=== PATIENT | male | born 1950 | race African-American/Black ===

== ENCOUNTER 2023-05-17 01:50 | Observation (INO) | payer OTHER ==
[2023-05-17 01:59] VITALS: BMI 32.3
[2023-05-17 02:48] LABS: BASO % 0.5 % (0-2.0); HEMATOCRIT 43.3 % (35.4-49); HEMOGLOBIN 14.8 GM/dL (11.7-16.9); LYMPH % 43.5 % (8-40); MCH 36.4 pg (25.7-33.7); MCHC 34.2 g/dl (32.0-35.9); MEAN CELL VOLUME 106.4 fl (80-96); MEAN PLT VOLUME 8.7 fl (7.5-11.1); MONO % 8.8 % (3.8-10.2); NEUT % 46.2 % (42.8-82.8); PLATELET COUNT 232 10^3/uL (134-434); RBC 4.07 M/mm3 (4.00-5.60); RDW 15.2 % (11.9-15.9); WHITE BLOOD COUNT 8.1 K/mm3 (4.0-10.0)
[2023-05-17 02:58] LABS: INR 0.97 (0.83-1.09); POTASSIUM 3.5 mmol/L (3.5-5.1); PROTHROMBIN TIME (PATIENT) 11.2 SEC (9.7-13.0)
[2023-05-17 03:00] LABS: ACTIVATED PTT 31.1 SECONDS (25.2-36.5); CALCIUM 8.7 mg/dL (8.5-10.1)
[2023-05-17 03:01] LABS: MAGNESIUM 1.9 mg/dL (1.8-2.4)
[2023-05-17 03:04] LABS: CREATININE 0.8 mg/dL (0.55-1.3)
[2023-05-17 03:05] LABS: BILIRUBIN,TOTAL 0.4 mg/dL (0.2-1); TOT PROT 7.7 g/dl (6.4-8.2)
[2023-05-17 05:55] LABS: ANISOCYTOSIS 1+; MACROCYTOSIS 1+
[2023-05-17 08:08] LABS: BASO % 0.8 % (0-2.0); EOS % 0.8 % (0-4.5); HEMATOCRIT 39.8 % (35.4-49); HEMOGLOBIN 13.6 GM/dL (11.7-16.9); MCH 36.6 pg (25.7-33.7); MCHC 34.3 g/dl (32.0-35.9); MEAN CELL VOLUME 106.7 fl (80-96); MEAN PLT VOLUME 9.1 fl (7.5-11.1); MONO % 10.5 % (3.8-10.2); NEUT % 52.9 % (42.8-82.8); PLATELET COUNT 196 10^3/uL (134-434); RBC 3.73 M/mm3 (4.00-5.60); WHITE BLOOD COUNT 6.6 K/mm3 (4.0-10.0)
[2023-05-17 08:31] LABS: POTASSIUM 3.7 mmol/L (3.5-5.1)
[2023-05-17 08:35] LABS: ALBUMIN 2.8 g/dl (3.4-5.0); BLOOD UREA NITROGEN 9.3 mg/dL (7-18); CALCIUM 8.2 mg/dL (8.5-10.1); CHOLESTEROL 197 mg/dL (50-200); MAGNESIUM 1.8 mg/dL (1.8-2.4)
[2023-05-17 08:37] LABS: LDL CHOLESTEROL (ONLY SJRH) 101 mg/dL (5-100)
[2023-05-17 08:38] LABS: HDL CHOLESTEROL 86 mg/dL (40-60)
[2023-05-17 08:39] LABS: CREATININE 0.7 mg/dL (0.55-1.3)
[2023-05-17 08:40] LABS: BILIRUBIN,TOTAL 0.3 mg/dL (0.2-1); TOT PROT 6.7 g/dl (6.4-8.2)
[2023-05-17] MEDS ORDERED: HYDROCHLOROTHIAZIDE 25 MG TABLET (FP) ONE (09:18)
[2023-05-17] MEDS ORDERED: ENOXAPARIN NA (PORCINE) 40 MG/0.4 ML DISP.SYRIN SQ ONE (09:19)
[2023-05-17] MEDS ORDERED: LISINOPRIL 10 MG TABLET ONE ×2 (09:19→22:29)
[2023-05-17] MEDS: HYDROCHLOROTHIAZIDE 12.5 MG CAPSULE (FP) PO SCH (09:26)
[2023-05-17] MEDS: ENOXAPARIN NA (PORCINE) 40 MG/0.4 ML DISP.SYRIN SQ SCH (09:26)
[2023-05-17] MEDS ORDERED: LISINOPRIL 10 MG TABLET PO SCH (22:00)
[2023-05-18 06:30] VITALS: TEMP 97.8
[2023-05-18] MEDS: ENOXAPARIN NA (PORCINE) 40 MG/0.4 ML DISP.SYRIN SQ SCH (09:51)
[2023-05-18] MEDS: HYDROCHLOROTHIAZIDE 12.5 MG CAPSULE (FP) PO SCH (09:51)
[2023-05-18 10:21] VITALS: BP 161/84; PULSE 77; RESP 23
== END 2023-05-18 10:30 | disposition home or self-care (01) ==
LOC: JER 01:50 → JERBED 04:57
PROVIDERS: ADMIT Internal Medicine; ATTEND Internal Medicine
PROC: 3E023GC Introduction of Other Therapeutic Substance into Muscle, Percutaneous Approach (ICD-10-PCS; principal; 2023-05-17)
DX: R07.89 Other chest pain (principal); R00.8 Other abnormalities of heart beat; R00.2 Palpitations; I51.7 Cardiomegaly; Z87.891 Personal history of nicotine dependence
CPT/HCPCS: 36415; 71045-TC-FY; 71260-TC; 80053; 80061; 83036; 83690; 83735; 84100; 84443; 84484; 85025; 85610; 85730; 93005; 93010; 93306-TC; 96372; 99285-25; G0378